=== PATIENT | female | born 1955 | race Caucasian/White ===

== ENCOUNTER 2018-01-03 05:54 | Day surgery (SDC) | payer OTHER ==
[2017-12-30 11:52] VITALS: BMI 31.6
[2018-01-03] MEDS ORDERED: PROPOFOL 20 ML ONE ×2 (07:01→07:49)
[2018-01-03] MEDS ORDERED: MIDAZOLAM HCL 2 MG/2 ML SINGLE DOSE VIAL ONE (07:01)
[2018-01-03] MEDS ORDERED: DEXAMETHASONE SOD PHOSPHATE 4 MG/1 ML VIAL ONE (07:02)
[2018-01-03] MEDS ORDERED: KETOROLAC TROMETHAMINE 30 MG/1 ML VIAL ONE (07:02)
[2018-01-03] MEDS ORDERED: LIDOCAINE HCL/PF 2% SDV 5ML VIAL ONE (07:02)
[2018-01-03] MEDS ORDERED: SUCCINYLCHOLINE CHLORIDE 200 MG/10 ML VIAL ONE (07:02)
[2018-01-03] MEDS ORDERED: ONDANSETRON 4 MG/2 ML VIAL ONE (07:02)
[2018-01-03] MEDS ORDERED: BUPIVACAINE HCL/PF 2.5 MG/ML - 30 ML VIAL IJ ONE (07:03)
[2018-01-03] MEDS ORDERED: EPINEPHrine 1:1,000 1 MG/1 ML - 30ML VIAL (INJECTION) ONE (07:13)
[2018-01-03] MEDS ORDERED: ONDANSETRON 4 MG/2 ML VIAL IVPUSH PRN (07:23)
[2018-01-03] MEDS ORDERED: oxyCODONE HCL 5 MG TABLET PO PRN ×2 (07:23)
[2018-01-03] MEDS ORDERED: LACTATED RINGERS SOLUTION 1,000 ML IV SCH (07:30)
[2018-01-03] MEDS ORDERED: BUPIVACAINE HCL/PF 0.25% (2.5MG/ML) 10 ML VIAL IJ ONE (08:04)
[2018-01-03 09:42] VITALS: TEMP 97.5
[2018-01-03 10:14] VITALS: BP 120/50; PULSE 66
--- NOTE | 2018-01-05 21:14 | OP ---
DATE OF OPERATION: 01/03/2018 LOCATION: [facility]. SURGEON: Shiv Veliz MD REGIONAL CRA: LISA Chen PREOPERATIVE DIAGNOSES: 1. Right knee medial and lateral meniscal tear. 2. Right knee cartilage injury. 3. Right knee synovitis. POSTOPERATIVE DIAGNOSES: 1. Right knee medial and lateral meniscal tear. 2. Right knee cartilage injury. 3. Right knee synovitis. PROCEDURE: 1. Right knee arthroscopy with partial meniscectomy, lateral meniscus. 2. Right knee arthroscopy with chondroplasty and abrasion-plasty. 3. Right knee arthroscopy with synovectomy, including removal of medial plica. FINDINGS: 1. Medial meniscus body and posterior horn tear. 2. Lateral meniscus posterior horn tear. 3. Synovitis, patellofemoral, medial and lateral notch area. 4. Anterior grade 2 cartilage injury, medial femoral condyle. 5. ACL and PCL intact. 6. Diffuse grade 1 to 2 cartilage injury, lateral joint line. 7. Central grade 2 to 4 cartilage injury, patellofemoral trochlea and patellofemoral joint. PROCEDURE: Informed consent was obtained. The patient came to the operating room, where the lower extremity was prepped and draped in a sterile fashion. A tourniquet was placed on the upper thigh, but not inflated. Using standard arthroscopic technique, a lateral incision and portal was made to allow for introduction of the camera into the suprapatellar bursa. This was then taken to the medial joint line, where under direct visualization, a medial incision and portal was made. Excessive synovium noted in the medial, lateral and patellofemoral and notch area was removed by an upbiter, shaver and Bovie cautery. This was found to bring in inflammatory tissue into the joint surface, a source of pain and dysfunction. Probing of the medial and lateral meniscus found tears, as described in the findings. These were removed with the upbiter and shaver and taken back to a stable rim. Grade 2 to 3 degenerative changes were treated with a chondroplasty, removing all flaking surfaces with low-setting Bovie along the periphery to prevent further flaking. Grade 4 changes, as noted, were treated with an abrasoplasty, creating a bleeding surface at the bone/cartilage interface. Aggressive debridement with shaver/jace created bleeding surface. Micro fracture also done when indicated in findings All areas of the knee were once again reexamined. The knee was then drained and a single suture was placed in all portals. A sterile dressing was placed and the patient was transferred to the recovery room without complication. SHIV VELIZ M.D. [id number]
--- NOTE | 2018-01-07 15:01 | PATH ---
Surgical Pathology Report Patient Name: SHANE KILLIAN [facility]. Rec. #: [id number] /Age/Gender: 1955 (Age: 62) / F Account: [id number] Location: [facility] Taken: 01/03/2018 Received: 01/03/2018 Reported: 01/07/2018 Physicians: Shiv Stephenson M.D. Specimen(s) Received RIGHT KNEE SHAVINGS Clinical History Internal derangement right knee Final Diagnosis KNEE, RIGHT, ARTHROSCOPIC SHAVINGS: FIBROSYNOVIAL AND FIBROCARTILAGINOUS TISSUE. Electronically Signed Angle aGllardo M.D. Gross Description Received in formalin, labeled "right knee shavings," is a 4.2 x 3.5 x 0.3 cm. aggregate of emmanuel-yellow soft tissue fragments. A field representative portion is submitted in one cassette. /01/06/201801/06/2018
== END 2018-01-03 10:17 | disposition home or self-care (01) ==
LOC: FASU 05:54
PROVIDERS: ATTEND Orthopaedic Surgery
PROC: 0SBC4ZZ Excision of Right Knee Joint, Percutaneous Endoscopic Approach (ICD-10-PCS; 2018-01-03)
PROC: 0SBC4ZZ Excision of Right Knee Joint, Percutaneous Endoscopic Approach (ICD-10-PCS; 2018-01-03)
PROC: 0SBC4ZZ Excision of Right Knee Joint, Percutaneous Endoscopic Approach (ICD-10-PCS; principal; 2018-01-03 07:30)
DX: S83.241A Other tear of medial meniscus, current injury, right knee, initial encounter (principal); S83.281A Other tear of lateral meniscus, current injury, right knee, initial encounter; S83.8X1A Sprain of other specified parts of right knee, initial encounter; M65.861 Other synovitis and tenosynovitis, right lower leg; X58.XXXA Exposure to other specified factors, initial encounter; Y93.89 Activity, other specified; Y92.89 Other specified places as the place of occurrence of the external cause
CPT/HCPCS: 88304-TC; 94760

== ENCOUNTER 2019-05-13 20:24 | Inpatient (IN) | payer OTHER ==
--- NOTE | 2019-05-14 00:50 | PDOC ---
Documentation entered by Harika Dominique SCRIBE, acting as scribe for Mary Kate Hobson MD. Mary Kate Hobson MD: This documentation has been prepared by the Trip lam Xhesika, SCRIBE, under my direction and personally reviewed by me in its entirety. I confirm that the documentation accurately reflects all work, treatment, procedures, and medical decision making performed by me. History of Present Illness - General Chief Complaint: Injury Stated Complaint: S/P FALL FALL, L HIP PAIN History Source: Patient Exam Limitations: No Limitations - History of Present Illness Initial Comments: 05/13/19 20:55 The patient is a 63 year old female, with a significant PMH of hypothyroidism ( on medication) and Breast ca (2012 Right Breast lumpectomy, on medication) who presents to the emergency department with L hip pain s/p fall. The patient states she was cleaning her kitchen, spilled some cleaning fluid, went to the bathroom and forgot the cleaning fluid was on the ground, when she returned to the kitchen she slipped and fell forward. The patient states she was able to crawl to her bed, however, she feels like her groin is sore and feels slightly short of breath. The patient states her pain is worsened with movement and walking. The patient denies chest pain, headache and dizziness. Denies fever, chills, nausea, vomiting, diarrhea and constipation. Denies dysuria, frequency, urgency and hematuria. Allergies: NKA Past surgical history: Abdominal Myomectomy, Left knee arthroscopy Social history: No tobacco use. Occasional alcohol use. PCP: Cira Rangel Past History - Past Medical History Allergies/Adverse Reactions: Allergies Allergy/AdvReac Type Severity Reaction Status Date / Time No Known Allergies Allergy Verified 01/03/18 06:54 Home Medications: Ambulatory Orders Anastrozole [Arimidex -] 1 mg PO DAILY 03/08/16 Cholecalciferol (Vitamin D3) [Vitamin D3] 1,000 unit PO DAILY 03/08/16 Levothyroxine [Synthroid -] 25 mcg PO DAILY 03/08/16 Anemia: No Asthma: No Cancer: Yes (2012 Right Breast) Cardiac Disorders: No CVA: No COPD: No CHF: No Dementia: No Diabetes: No GI Disorders: No Disorders: No HTN: No Hypercholesterolemia: No Liver Disease: No Seizures: No Thyroid Disease: Yes - Surgical History Abdominal Surgery: Yes (Abdominal Myomectomy) Appendectomy: No Cardiac Surgery: No Cholecystectomy: No Lung Surgery: No Neurologic Surgery: No Orthopedic Surgery: Yes (LEFT KNEE ARTHROSCOPY) - Suicide/Smoking/Psychosocial Hx Smoking History: Never smoked Hx Alcohol Use: Yes Drug/Substance Use Hx: No Substance Use Type: Alcohol Hx Substance Use Treatment: No Review of Systems - Review of Systems Able to Perform ROS?: Yes Comments:: 05/13/19 20:56 GENERAL/CONSTITUTIONAL: No fever or chills. No weakness. HEAD, EYES, EARS, NOSE AND THROAT: No change in vision. No ear pain or discharge. No sore throat. CARDIOVASCULAR: No chest pain. (+) shortness of breath. RESPIRATORY: No cough, wheezing, or hemoptysis. GASTROINTESTINAL: No nausea, vomiting, diarrhea or constipation. GENITOURINARY: No dysuria, frequency, or change in urination. MUSCULOSKELETAL:(+) L hip pain. No joint or muscle swelling. No neck or back pain. SKIN: No rash NEUROLOGIC: No headache, vertigo, loss of consciousness, or change in strength/ sensation. ENDOCRINE: No increased thirst. No abnormal weight change. HEMATOLOGIC/LYMPHATIC: No anemia, easy bleeding, or history of blood clots. ALLERGIC/IMMUNOLOGIC: No hives or skin allergy. *Physical Exam - Physical Exam Comments: 05/13/19 20:56 GENERAL: Awake, alert, and fully oriented, in no acute distress HEAD: No signs of trauma EYES: PERRLA, EOMI, sclera anicteric, conjunctiva clear ENT: Auricles normal inspection, hearing grossly normal, nares patent, oropharynx clear without exudates. Moist mucosa NECK: Normal ROM, supple, no lymphadenopathy, JVD, or masses CHEST WALL: no chest wall tenderness to palpation. LUNGS: Breath sounds equal, clear to auscultation bilaterally. No wheezes, and no crackles HEART: Regular rate and rhythm, normal S1 and S2, no murmurs, rubs or gallops ABDOMEN: Soft, nontender, normoactive bowel sounds. No guarding, no rebound. No masses EXTREMITIES: (+) moderate tenderness to palpation of proximal anterior L thigh with minimal pain with flexion and extension of the hip joint. Normal range of motion, no edema. No clubbing or cyanosis. No cords, erythema, or tenderness NEUROLOGICAL: Cranial nerves II through XII grossly intact. Normal speech, normal gait SKIN: Warm, Dry, normal turgor, no rashes or lesions noted. Twelve-lead electrocardiogram is performed: Normal sinus rhythm at 92 bpm; axis , intervals and waveforms are all normal. ED Treatment Course - LABORATORY CBC & Chemistry Diagram: 05/14/19 01:00 05/14/19 01:00 Progress Note - Progress Note Progress Note: Left hip/pelvis x-ray performed. Preliminary interpretation by Imaging summer sessions director : Subcapital versus transcervical left femoral neck fracture with suggestion for CT correlation. CT of left hip performed and preliminary interpretation by Imaging summer sessions director: Acute minimally displaced subcapital fracture of the left femoral neck no dislocation is present there is somewhat fragmented appearance of the anterior posterior acetabulum, thought to be due to osteophytosis. Medical Decision Making - Medical Decision Making 05/14/19 00:39 Results of radiologic studies discussed with the patient. Patient's general medical doctor is Dr. Crockett. Her orthopedist is Dr. Stephenson. Dr. Crockett contacted by phone: She is currently on vacation. Coverage for admissions will be Dr. Lyn Vernon. Overnight, Dr. Vernon's admissions are handled by [facility] hospitalist service Case discussed with DAIJA Wilson of [facility] hospitalist service and patient was admitted, Dr Gandara's service 05/14/19 06:43 Orthopedic surgery consultation called into 's service: Case discussed with Dr. Alexander . Message will be passed along to Dr. Jimenez and Dr. Alexander will continue to follow case as he is here today performing surgery. The patient will continue to be kept NPO, which she has been since arrival here in the ER. 05/14/19 06:55 Patient was comfortable overnight in ER; received one dose of acetaminophen IV. Laboratory evaluation essentially normal except for evidence of mild prerenal azotemia(BUN22/Cre1.0) *DC/Admit/Observation/Transfer Diagnosis at time of Disposition: Fracture of left hip Qualifiers: Encounter type: initial encounter Fracture type: closed Qualified Code(s): S72.002A - Fracture of unspecified part of neck of left femur, initial encounter for closed fracture - Discharge Dispostion Condition at time of disposition: Stable Decision to Admit order: Yes - Referrals - Patient Instructions - Post Discharge Activity
[2019-05-14] MEDS ORDERED: ACETAMINOPHEN 1000 MG/100 ML VIAL (NON FORMULARY) IVPB ONE ×3 (01:03→16:34)
[2019-05-14 01:41] LABS: BASO % 0.3 % (0-2.0); EOS % 0.8 % (0-4.5); HEMATOCRIT 40.6 % (32.4-45.2); HEMOGLOBIN 13.3 GM/dL (10.7-15.3); MCH 30.4 pg (25.7-33.7); MCHC 32.8 g/dl (32.0-36.0); MEAN CELL VOLUME 92.6 fl (80-96); MEAN PLT VOLUME 8.5 fl (7.5-11.1); MONO % 6.4 % (3.8-10.2); NEUT % 80.5 % (42.8-82.8); PLATELET COUNT 250 K/MM3 (134-434); RBC 4.39 M/mm3 (3.60-5.2); RDW 13.6 % (11.6-15.6); WHITE BLOOD COUNT 9.4 K/mm3 (4.0-10.0)
[2019-05-14] MEDS: DEXTROSE 5%-0.45% SALINE 1,000 ML IV SCH (01:55)
[2019-05-14 01:58] LABS: INR 0.95 (0.83-1.09); PROTHROMBIN TIME (PATIENT) 11.2 SEC (9.7-13.0)
[2019-05-14 02:02] LABS: BILIRUBIN,TOTAL 0.7 mg/dL (0.2-1); CALCIUM 9.4 mg/dL (8.5-10.1); POTASSIUM 4.1 mmol/L (3.5-5.1); TOT PROT 7.2 g/dl (6.4-8.2)
[2019-05-14] MEDS ORDERED: ACETAMINOPHEN INJECTION 100 ML IVPB ONE (02:38)
[2019-05-14] MEDS: LEVOTHYROXINE NA 25 MCG TABLET (FP) PO SCH (08:30)
--- NOTE | 2019-05-14 09:31 | HP ---
Admitting History and Physical - Primary Care Physician PCP: Cira Crockett - Admission History of Present Illness: Patient seen and examined in the emergency room today Chart is reviewed ER records reviewed And I concur as per emergency room records The patient is a 63 year old female, with a significant PMH of hypothyroidism ( on medication) and Breast ca (2012 Right Breast lumpectomy, on medication) who presents to the emergency department with L hip pain s/p fall. The patient states she was cleaning her kitchen, spilled some cleaning fluid, went to the bathroom and forgot the cleaning fluid was on the ground, when she returned to the kitchen she slipped and fell forward. The patient states she was able to crawl to her bed, however, she feels like her groin is sore and feels slightly short of breath. The patient states her pain is worsened with movement and walking. The patient denies chest pain, headache and dizziness. Denies fever, chills, nausea, vomiting, diarrhea and constipation. Denies dysuria, frequency, urgency and hematuria. Allergies: NKA Past surgical history: Abdominal Myomectomy, Left knee arthroscopy Social history: No tobacco use. Occasional alcohol use. PCP: Cira Rangel Workup in the emergency room--showed left femoral neck impacted fracture Patient kept npo Orthopedics consult requested pt at time of my exam comfortable pain under control History Source: Patient Limitations to Obtaining History: No Limitations - Past Medical History Endocrine: Yes: Hypothyroidism Additional Past Medical History: breast cancer - Smoking History Smoking history: Never smoked Have you smoked in the past 12 months: No Aproximately how many cigarettes per day: 0 - Alcohol/Substance Use Hx Alcohol Use: Yes Home Medications - Allergies Allergies/Adverse Reactions: Allergies Allergy/AdvReac Type Severity Reaction Status Date / Time No Known Allergies Allergy Verified 01/03/18 06:54 - Home Medications Home Medications: Ambulatory Orders Anastrozole [Arimidex -] 1 mg PO DAILY 03/08/16 Cholecalciferol (Vitamin D3) [Vitamin D3] 1,000 unit PO DAILY 03/08/16 Levothyroxine [Synthroid -] 25 mcg PO DAILY 03/08/16 Review of Systems - Review of Systems Constitutional: reports: No Symptoms Eyes: reports: No Symptoms HENT: reports: No Symptoms Neck: reports: No Symptoms Cardiovascular: reports: No Symptoms Respiratory: reports: No Symptoms Genitourinary: reports: No Symptoms Musculoskeletal: reports: Joint Pain Neurological: reports: No Symptoms Endocrine: reports: No Symptoms Psychiatric: reports: No Symptoms Physical Examination Vital Signs: Vital Signs Temperature 98.3 F 05/14/19 06:22 Pulse Rate 89 05/14/19 06:22 Respiratory Rate 14 05/14/19 06:22 Blood Pressure 111/50 L 05/14/19 06:22 O2 Sat by Pulse Oximetry (%) 99 05/14/19 06:22 Constitutional: Yes: No Distress, Calm Eyes: Yes: Conjunctiva Clear HENT: Yes: WNL Neck: Yes: Supple, Other (no bruie) Cardiovascular: Yes: Regular Rate and Rhythm Respiratory: Yes: CTA Bilaterally Gastrointestinal: Yes: Soft Edema: No Peripheral Pulses WNL: Yes Labs: CBC, BMP 05/14/19 01:00 05/14/19 01:00 Imaging - Results Chest X-ray: Report Reviewed Cat Scan: Report Reviewed Problem List - Problems (1) Fracture of left hip Assessment/Plan: pain control Orthopedics to follow Medically stable for proposed procedure Emergency room workup was reviewed keep nothing by mouth for now Mild hydration Code(s): S72.002A - FRACTURE OF UNSP PART OF NECK OF LEFT FEMUR, INIT Qualifiers: Encounter type: initial encounter Fracture type: closed Qualified Code(s) : S72.002A - Fracture of unspecified part of neck of left femur, initial encounter for closed fracture (2) Hypothyroidism Assessment/Plan: on Synthroid Monitor TSH level Code(s): E03.9 - HYPOTHYROIDISM, UNSPECIFIED (3) Breast cancer Assessment/Plan: no active issues On Arimidex Code(s): C50.919 - MALIGNANT NEOPLASM OF UNSP SITE OF UNSPECIFIED FEMALE BREAST
--- NOTE | 2019-05-14 09:40 | CONSULT ---
Consult Consult Specialty:: Orthopedics - Alcohol/Substance Use Hx Alcohol Use: Yes - Smoking History Smoking history: Never smoked Have you smoked in the past 12 months: No Aproximately how many cigarettes per day: 0 Home Medications - Allergies Allergies/Adverse Reactions: Allergies Allergy/AdvReac Type Severity Reaction Status Date / Time No Known Allergies Allergy Verified 01/03/18 06:54 - Home Medications Home Medications: Ambulatory Orders Anastrozole [Arimidex -] 1 mg PO DAILY 03/08/16 Cholecalciferol (Vitamin D3) [Vitamin D3] 1,000 unit PO DAILY 03/08/16 Levothyroxine [Synthroid -] 25 mcg PO DAILY 03/08/16 Physical Exam Vital Signs: Vital Signs Temperature 98.3 F 05/14/19 06:22 Pulse Rate 89 05/14/19 06:22 Respiratory Rate 14 05/14/19 06:22 Blood Pressure 111/50 L 05/14/19 06:22 O2 Sat by Pulse Oximetry (%) 99 05/14/19 06:22 Labs: CBC, BMP 05/14/19 01:00 05/14/19 01:00 Assessment/Plan Full consult to follow Impacted left femoral neck fracture Keep NPO for percutaneous pinning today if medically cleared.
[2019-05-14] MEDS: ANASTROZOLE 1 MG TABLET PO SCH (10:58)
[2019-05-14] MEDS ORDERED: MIDAZOLAM HCL 2 MG/2 ML SINGLE DOSE VIAL ONE (13:23)
[2019-05-14] MEDS ORDERED: PROPOFOL 20 ML ONE (14:21)
[2019-05-14] MEDS ORDERED: SUCCINYLCHOLINE CHLORIDE 200 MG/10 ML VIAL ONE (14:21)
[2019-05-14] MEDS ORDERED: ONDANSETRON 4 MG/2 ML VIAL IVPUSH PRN ×2 (16:20→16:36)
[2019-05-14] MEDS ORDERED: PROMETHAZINE HCL 25 MG/1 ML VIAL IVPUSH PRN (16:20)
[2019-05-14] MEDS ORDERED: LACTATED RINGERS SOLUTION 1,000 ML IV SCH ×2 (16:30→16:45)
--- NOTE | 2019-05-14 16:30 | OP ---
Operative Note - Note: Operative Date: 05/14/19 Pre-Operative Diagnosis: left femoral neck fracture Operation: Cannulated screw fixation of left femoral neck fracture Post-Operative Diagnosis: Same as Pre-op Surgeon: Kirk Alexander Perfume And Toilet Water Maker: Isabell Nuno Anesthesia: Spinal Estimated Blood Loss (mls): 50
[2019-05-14] MEDS ORDERED: oxyCODONE HCL 5 MG TABLET PO PRN ×3 (16:35→16:38)
[2019-05-14] MEDS ORDERED: MAG HYDROX/AL HYDROX/SIMETH 30 ML UNIT-DOSE CUP PO PRN (16:36)
[2019-05-14] MEDS ORDERED: MAGNESIUM HYDROX 2400MG/30ML ORAL SUSPENSION 30 ML CUP PO PRN (16:36)
[2019-05-14] MEDS: KETOROLAC TROMETHAMINE 30 MG/1 ML VIAL IVPUSH SCH ×2 (16:45→23:02)
[2019-05-14] MEDS ORDERED: ONDANSETRON 4 MG/2 ML VIAL ONE (17:08)
--- NOTE | 2019-05-14 17:12 | EKG ---
Test Reason : Blood Pressure : / mmHG Vent. Rate : 092 BPM Atrial Rate : 092 BPM P-R Int : 144 ms QRS Dur : 080 ms QT Int : 362 ms P-R-T Axes : 046 064 046 degrees QTc Int : 447 ms NORMAL SINUS RHYTHM NORMAL ECG WHEN COMPARED WITH ECG OF 12-APR-2004 08:22, T WAVE AMPLITUDE HAS DECREASED IN ANTERIOR LEADS Confirmed by JERAD ANGULO MD ([id number]) on 05/14/2019 5:12:10 PM Referred By: MD POSADA Confirmed By:JERAD ANGULO MD
--- NOTE | 2019-05-14 17:13 | OP ---
DATE OF OPERATION: 05/14/2019 PREOPERATIVE DIAGNOSIS: Left femoral neck fracture. POSTOPERATIVE DIAGNOSIS: Left femoral neck fracture. PROCEDURE: Left hip cannulated screw fixation of femoral neck fracture. ATTENDING: Kirk Alexander MD CLINIC LPN: LISA Trevino ANESTHESIA: General. ESTIMATED BLOOD LOSS: 50 mL. COMPLICATIONS: None. DISPOSITION: The patient was awakened and taken to the PACU in stable condition. IMPLANTS USED: Molly 6.5 mm x 80 mm Asnis cannulated screws x3. INDICATIONS: This is a 63-year-old female who had a mechanical fall at home and was admitted to the emergency room with femoral neck fracture. X-rays and a CT scan showed that it was a valgus-impacted, Garden I femoral neck fracture without displacement. The patient was seen and examined by Dr. Alexander as an inpatient consult and indicated for cannulated screw fixation of the fracture. The risks, benefits, and alternatives to the procedure were explained to the patient in great detail, and she elected to proceed with the surgery. On the day of surgery, the patient was taken to the operating room and placed under general anesthesia. Intravenous antibiotics were given for infection prophylaxis. The patient was positioned supine on the fracture table, and the left lower extremity was secured to the traction boot. The contralateral leg was placed in the semi-lithotomy position, and all extremities were padded. A fluoroscope was then used to visualize the fracture in both the AP and lateral planes. The hip was then prepped with chlorhexidine, and a sterile drape was applied in the usual fashion. A 4-cm incision was then made just distal to the greater trochanter. This was carried down sharply through skin to the fascia. The femur was identified. The guidewire for the [place] cannulated screw system was placed in the appropriate position at the level of the lesser trochanter, and a guidewire was placed into the inferior femoral neck and found to be centered on the lateral view. The triangle guide was then used to place 2 more guidewires superior to the inferior guidewire in the appropriate inverted Delta triangular formation. The guidewire lengths were then measured to calculate our screw lengths. A single screw was then placed inferiorly, followed by 2 screws superiorly. Fluoroscopy was used throughout the process to ensure that the guidewires and screws were appropriately in the head and neck in all views. Once this was completed, the guidewires were removed. The wound was thoroughly irrigated with normal saline and closed with number 1 Vicryl for the fascia, 2-0 Vicryl for the subcutaneous tissues, and 3-0 Monocryl for skin. Dermabond adhesive skin closure glue was then applied, followed by Steri-Strips. A sterile Aquacel dressing was then applied. The patient was then awakened and taken to the PACU in stable condition. Analy WAGONER/[id number]
[2019-05-14] MEDS: traMADol HCL 50 MG TABLET PO SCH ×2 (17:40→23:02)
[2019-05-14 18:51] VITALS: BMI 41.4
[2019-05-14] MEDS: GABAPENTIN 300 MG CAPSULE (FP) PO SCH (23:01)
[2019-05-14] MEDS: oxyCODONE HCL 10 MG SUSTAINED ACTING TABLET PO SCH (23:01)
[2019-05-14] MEDS: SENNOSIDES/DOCUSATE COMBO (SENNA PLUS) TABLET (UD) PO SCH (23:01)
[2019-05-14] MEDS: CEFAZOLIN 2 GM/D5W 2 GM/50 ML ML IVPB SCH (23:14)
[2019-05-15] MEDS ORDERED: DEXAMETHASONE SOD PHOSPHATE 10 MG/1 ML VIAL IVPB ONE
[2019-05-15] MEDS: DEXTROSE 5%-0.45% SALINE 1,000 ML IV SCH (01:00)
[2019-05-15] MEDS: KETOROLAC TROMETHAMINE 30 MG/1 ML VIAL IVPUSH SCH ×2 (06:23→11:56)
[2019-05-15] MEDS: LEVOTHYROXINE NA 25 MCG TABLET (FP) PO SCH (06:24)
[2019-05-15] MEDS: CEFAZOLIN 2 GM/D5W 2 GM/50 ML ML IVPB SCH (06:25)
[2019-05-15] MEDS: traMADol HCL 50 MG TABLET PO SCH ×4 (06:27→21:59)
[2019-05-15 08:04] LABS: CREATININE 0.7 mg/dl (0.55-1.3); POTASSIUM 4.3 mmol/L (3.5-5.1)
[2019-05-15 08:08] LABS: HEMATOCRIT 35.3 % (32.4-45.2); HEMOGLOBIN 12.1 GM/dl (10.7-15.3); MCH 31.6 pg (25.7-33.7); MCHC 34.2 g/dl (32.0-36.0); MEAN CELL VOLUME 92.4 fl (80-96); MEAN PLT VOLUME 8.8 fl (7.5-11.1); PLATELET COUNT 200 K/MM3 (134-434); RBC 3.82 M/mm3 (3.60-5.2); RDW 12.8 % (11.6-15.6); WHITE BLOOD COUNT 6.6 K/mm3 (4.0-10.8)
--- NOTE | 2019-05-15 10:08 | PN ---
Progress Note (short form) - Note Progress Note: pt seen / examined pod # 1 comfortable. denies pain Vital Signs Temp 98.5 F 05/15/19 06:00 Pulse 69 05/15/19 06:00 Resp 18 05/15/19 06:00 BP 115/54 L 05/15/19 06:00 Pulse Ox 95 05/15/19 06:00 Intake & Output 05/14/19 05/14/19 05/15/19 11:59 23:59 11:59 Intake Total 1000 1050 1590 Output Total 350 Balance 7595 303 0268 Weight 249 lb 1.957 oz Intake: IV 4669 817 5840 Lactated Ringers Solution 1300 1,000 ml @ 125 mls/hr IV ASDIR [facility] Rx#: [id number] IVPB 50 Oral 850 240 Output: Urine 350 Void 350 Other: Voiding Method Bedpan Bedpan # Unmeasured Voids Void 1 1 Bowel Movement No No Height 5 ft 5 in Body Mass Index (BMI) 41.4 Weight Measurement Method [facility] Active Medications Al Hydroxide/Mg Hydroxide (Mylanta Oral Suspension -) 30 ml PO Q4H PRN PRN Reason: DYSPEPSIA Anastrozole (Arimidex -) 1 mg PO DAILY [facility] Last Admin: 05/14/19 10:58 Dose: Not Given Enoxaparin Sodium (Lovenox -) 40 mg SQ DAILY [facility] Gabapentin (Neurontin -) 300 mg PO BID [facility] Stop: 05/17/19 21:59 Last Admin: 05/14/19 23:01 Dose: 300 mg Dextrose/Sodium Chloride (D5-1/2ns -) 1,000 mls @ 60 mls/hr IV ASDIR [facility] Last Admin: 05/15/19 01:00 Dose: 60 mls/hr Ketorolac Tromethamine (Toradol Injection -) 30 mg IVPUSH Q6H [facility] Stop: 05/15/19 10:46 Last Admin: 05/15/19 06:23 Dose: 30 mg Levothyroxine Sodium (Synthroid -) 25 mcg PO DAILY@0700 [facility] Last Admin: 05/15/19 06:24 Dose: 25 mcg Magnesium Hydroxide (Milk Of Magnesia -) 30 ml PO PRN PRN PRN Reason: CONSTIPATION Multivitamins/Minerals/Vitamin C (Tab-A-Vit -) 1 tab PO DAILY [facility] Ondansetron HCl (Zofran Injection) 4 mg IVPUSH Q6H PRN PRN Reason: NAUSEA Oxycodone HCl (Oxycontin -) 10 mg PO BID [facility] Last Admin: 05/14/19 23:01 Dose: 10 mg Oxycodone HCl (Roxicodone -) 10 mg PO Q3H PRN PRN Reason: PAIN LEVEL 6-10 Stop: 05/17/19 16:36 Oxycodone HCl (Roxicodone -) 5 mg PO Q3H PRN PRN Reason: PAIN LEVEL 1-5 Stop: 05/17/19 16:35 Pantoprazole Sodium (Protonix -) 40 mg PO DAILY [facility] Senna/Docusate Sodium (Pericolace -) 2 tablet PO BID [facility] Last Admin: 05/14/19 23:01 Dose: 2 tablet Tramadol HCl (Ultram -) 50 mg PO Q6H [facility] Last Admin: 05/15/19 06:27 Dose: 50 mg CBC, BMP 05/15/19 07:21 05/15/19 07:21 TSH - Pending Physical Examination Constitutional: Yes: No Distress, Comfortable Eyes: Yes: Conjunctiva Clear HENT: Yes: WNL Neck: Yes: Supple, Other (no bruie) Cardiovascular: Yes: Regular Rate and Rhythm Respiratory: Yes: CTA Bilaterally Gastrointestinal: Yes: Soft Edema: No Peripheral Pulses WNL: Yes Extremities-- dressing + Imaging - Results Chest X-ray: Report Reviewed Cat Scan: Report Reviewed A/p pod #1 stable pain control PT d/c fluids Will follow Problem List - Problems (1) Fracture of left hip Code(s): S72.002A - FRACTURE OF UNSP PART OF NECK OF LEFT FEMUR, INIT Qualifiers: Encounter type: initial encounter Fracture type: closed Qualified Code(s) : S72.002A - Fracture of unspecified part of neck of left femur, initial encounter for closed fracture (2) Hypothyroidism Code(s): E03.9 - HYPOTHYROIDISM, UNSPECIFIED (3) Breast cancer Code(s): C50.919 - MALIGNANT NEOPLASM OF UNSP SITE OF UNSPECIFIED FEMALE BREAST
--- NOTE | 2019-05-15 11:22 | PN ---
Progress Note, Physician Chief Complaint: s/p left hip pinning under general anesthesia History of Present Illness: post op day one - Current Medication List Current Medications: Active Medications Al Hydroxide/Mg Hydroxide (Mylanta Oral Suspension -) 30 ml PO Q4H PRN PRN Reason: DYSPEPSIA Anastrozole (Arimidex -) 1 mg PO DAILY [facility] Last Admin: 05/14/19 10:58 Dose: Not Given Enoxaparin Sodium (Lovenox -) 40 mg SQ DAILY [facility] Gabapentin (Neurontin -) 300 mg PO BID [facility] Stop: 05/17/19 21:59 Last Admin: 05/14/19 23:01 Dose: 300 mg Levothyroxine Sodium (Synthroid -) 25 mcg PO DAILY@0700 [facility] Last Admin: 05/15/19 06:24 Dose: 25 mcg Magnesium Hydroxide (Milk Of Magnesia -) 30 ml PO PRN PRN PRN Reason: CONSTIPATION Multivitamins/Minerals/Vitamin C (Tab-A-Vit -) 1 tab PO DAILY [facility] Ondansetron HCl (Zofran Injection) 4 mg IVPUSH Q6H PRN PRN Reason: NAUSEA Oxycodone HCl (Oxycontin -) 10 mg PO BID [facility] Last Admin: 05/14/19 23:01 Dose: 10 mg Oxycodone HCl (Roxicodone -) 10 mg PO Q3H PRN PRN Reason: PAIN LEVEL 6-10 Stop: 05/17/19 16:36 Oxycodone HCl (Roxicodone -) 5 mg PO Q3H PRN PRN Reason: PAIN LEVEL 1-5 Stop: 05/17/19 16:35 Pantoprazole Sodium (Protonix -) 40 mg PO DAILY [facility] Senna/Docusate Sodium (Pericolace -) 2 tablet PO BID [facility] Last Admin: 05/14/19 23:01 Dose: 2 tablet Tramadol HCl (Ultram -) 50 mg PO Q6H [facility] Last Admin: 05/15/19 06:27 Dose: 50 mg - Objective Vital Signs: Vital Signs Temperature 98.6 F 05/15/19 10:00 Pulse Rate 72 05/15/19 10:00 Respiratory Rate 17 05/15/19 10:00 Blood Pressure 112/56 L 05/15/19 10:00 O2 Sat by Pulse Oximetry (%) 99 05/15/19 10:00 Constitutional: Yes: Well Nourished Cardiovascular: Yes: WNL Respiratory: Yes: WNL Gastrointestinal: Yes: WNL Labs: CBC, BMP 05/15/19 07:21 05/15/19 07:21 INR, PTT INR 0.95 (0.83-1.09) 05/14/19 01:00 Assessment/Plan No adverse effect from anesthesia, post op pain controlled, dept of anesthesiology will sign off care at this time
[2019-05-15] MEDS: ENOXAPARIN NA (PORCINE) 40 MG/0.4 ML DISP.SYRIN SQ SCH (11:45)
[2019-05-15] MEDS: SENNOSIDES/DOCUSATE COMBO (SENNA PLUS) TABLET (UD) PO SCH ×2 (11:48→21:57)
[2019-05-15] MEDS: PANTOPRAZOLE 40 MG TABLET (FP) PO SCH (11:48)
[2019-05-15] MEDS: MULTIVITAMINS (DAILY MVI) TABLET (FP) PO SCH (11:50)
[2019-05-15] MEDS: oxyCODONE HCL 10 MG SUSTAINED ACTING TABLET PO SCH ×2 (11:50→21:57)
[2019-05-15] MEDS: GABAPENTIN 300 MG CAPSULE (FP) PO SCH ×2 (11:50→21:57)
[2019-05-15] MEDS: ANASTROZOLE 1 MG TABLET PO SCH (11:51)
[2019-05-16] MEDS: traMADol HCL 50 MG TABLET PO SCH ×5 (06:26→21:59)
[2019-05-16] MEDS: LEVOTHYROXINE NA 25 MCG TABLET (FP) PO SCH (06:26)
[2019-05-16 08:38] LABS: HEMATOCRIT 37.3 % (32.4-45.2); HEMOGLOBIN 12.5 GM/dl (10.7-15.3); MCH 31.3 pg (25.7-33.7); MCHC 33.4 g/dl (32.0-36.0); MEAN CELL VOLUME 93.6 fl (80-96); MEAN PLT VOLUME 8.9 fl (7.5-11.1); PLATELET COUNT 197 K/MM3 (134-434); RBC 3.99 M/mm3 (3.60-5.2); RDW 12.6 % (11.6-15.6); WHITE BLOOD COUNT 8.5 K/mm3 (4.0-10.8)
[2019-05-16 08:42] LABS: CALCIUM 9.3 mg/dl (8.5-10); CREATININE 0.8 mg/dl (0.55-1.3); POTASSIUM 4.4 mmol/L (3.5-5.1)
--- NOTE | 2019-05-16 08:51 | PN ---
Progress Note (short form) - Note Progress Note: Pt seen and examined. Doing well. AVSS Selected Entries 05/16/19 05:00 Temperature 98.1 F Respiratory 18 Rate Blood Pressure 116/56 L O2 Sat by Pulse 96 Oximetry (%) Laboratory Tests 05/15/19 05/15/19 05/16/19 07:21 07:21 07:16 WBC 6.6 8.5 Hgb 12.1 12.5 Hct 35.3 37.3 Plt Count 200 197 Sodium 136 Potassium 4.3 Chloride 105 Carbon Dioxide 24 Anion Gap 7 L BUN 16.0 Creatinine 0.7 Est GFR (CKD-EPI)AfAm 105.38 Est GFR (CKD-EPI)NonAf 90.92 Random Glucose 144 H Calcium 9.0 Gen: NAD LLE: c/d/i, NVID A/P POD#2 s/p L femoral neck fracture cannulated screw fixation PT/OOB - WBAT LLE D/C planning to home vs SNF/rehab Lovenox for DVT ppx x 35 days F/U in office in 10-14 days
[2019-05-16] MEDS: oxyCODONE HCL 10 MG SUSTAINED ACTING TABLET PO SCH (09:17)
[2019-05-16] MEDS: ANASTROZOLE 1 MG TABLET PO SCH (09:17)
[2019-05-16] MEDS: ENOXAPARIN NA (PORCINE) 40 MG/0.4 ML DISP.SYRIN SQ SCH (09:17)
[2019-05-16] MEDS: GABAPENTIN 300 MG CAPSULE (FP) PO SCH ×2 (09:17→21:48)
[2019-05-16] MEDS: PANTOPRAZOLE 40 MG TABLET (FP) PO SCH (09:17)
[2019-05-16] MEDS: SENNOSIDES/DOCUSATE COMBO (SENNA PLUS) TABLET (UD) PO SCH ×2 (09:18→21:48)
[2019-05-16] MEDS: MULTIVITAMINS (DAILY MVI) TABLET (FP) PO SCH (09:18)
--- NOTE | 2019-05-16 13:32 | PN ---
Progress Note (short form) - Note Progress Note: pt seen/ examined pod #2 Ortho f/u noted but pt says Dr. Alexander suggested she should go to rehab Pt did walk with pt today but says felt dizzy afterwards otherwise stable and comfortable pain ok Vital Signs Temp 98.1 F 05/16/19 10:00 Pulse 73 05/16/19 10:00 Resp 18 05/16/19 10:00 BP 116/56 L 05/16/19 10:00 Pulse Ox 96 05/16/19 09:00 Intake & Output 05/15/19 05/16/19 05/16/19 23:59 11:59 23:59 Intake Total 750 380 Balance 750 380 Intake: Oral 750 380 Other: Voiding Method Bedpan Toilet # Unmeasured Voids Void 1 1 Active Medications Al Hydroxide/Mg Hydroxide (Mylanta Oral Suspension -) 30 ml PO Q4H PRN PRN Reason: DYSPEPSIA Anastrozole (Arimidex -) 1 mg PO DAILY [facility] Last Admin: 05/16/19 09:17 Dose: 1 mg Enoxaparin Sodium (Lovenox -) 40 mg SQ DAILY [facility] Last Admin: 05/16/19 09:17 Dose: 40 mg Gabapentin (Neurontin -) 300 mg PO BID [facility] Stop: 05/17/19 21:59 Last Admin: 05/16/19 09:17 Dose: 300 mg Levothyroxine Sodium (Synthroid -) 12.5 mcg PO DAILY@0700 [facility] Magnesium Hydroxide (Milk Of Magnesia -) 30 ml PO PRN PRN PRN Reason: CONSTIPATION Multivitamins/Minerals/Vitamin C (Tab-A-Vit -) 1 tab PO DAILY [facility] Last Admin: 05/16/19 09:18 Dose: 1 tab Ondansetron HCl (Zofran Injection) 4 mg IVPUSH Q6H PRN PRN Reason: NAUSEA Oxycodone HCl (Oxycontin -) 10 mg PO BID [facility] Last Admin: 05/16/19 09:17 Dose: 10 mg Oxycodone HCl (Roxicodone -) 10 mg PO Q3H PRN PRN Reason: PAIN LEVEL 6-10 Stop: 05/17/19 16:36 Oxycodone HCl (Roxicodone -) 5 mg PO Q3H PRN PRN Reason: PAIN LEVEL 1-5 Stop: 05/17/19 16:35 Pantoprazole Sodium (Protonix -) 40 mg PO DAILY [facility] Last Admin: 05/16/19 09:17 Dose: 40 mg Senna/Docusate Sodium (Pericolace -) 2 tablet PO BID [facility] Last Admin: 05/16/19 09:18 Dose: 2 tablet Tramadol HCl (Ultram -) 50 mg PO Q6H [facility] Last Admin: 05/16/19 10:15 Dose: Not Given CBC, BMP 05/16/19 07:16 05/16/19 07:16 Abnormal Lab Results 05/16/19 07:16 BUN 23.0 H CMP Sodium 139 mmol/L (136-145) 05/16/19 07:16 Potassium 4.4 mmol/L (3.5-5.1) 05/16/19 07:16 Chloride 103 mmol/L (98-107) 05/16/19 07:16 Carbon Dioxide 27 mmol/L (21-32) 05/16/19 07:16 Anion Gap 9 MMOL/L (8-16) 05/16/19 07:16 BUN 23.0 mg/dl (7-18) H 05/16/19 07:16 Creatinine 0.8 mg/dl (0.55-1.3) 05/16/19 07:16 Est GFR (CKD-EPI)AfAm 89.67 05/16/19 07:16 Est GFR (CKD-EPI)NonAf 77.37 05/16/19 07:16 Random Glucose 80 mg/dl (74-106) 05/16/19 07:16 Calcium 9.3 mg/dl (8.5-10) 05/16/19 07:16 Total Bilirubin 0.7 mg/dL (0.2-1) 05/14/19 01:00 AST 19 U/L (15-37) 05/14/19 01:00 ALT 31 U/L (13-61) 05/14/19 01:00 Alkaline Phosphatase 101 U/L (45-117) 05/14/19 01:00 Total Protein 7.2 g/dl (6.4-8.2) 05/14/19 01:00 Albumin 4.0 g/dl (3.4-5.0) 05/14/19 01:00 TSH 0.11 uIU/ml (0.358-3.74) L 05/15/19 08:52 Physical Examination Constitutional: Yes: No Distress, Comfortable Eyes: Yes: Conjunctiva Clear HENT: Yes: WNL Neck: Yes: Supple, Other (no bruie) Cardiovascular: Yes: Regular Rate and Rhythm Respiratory: Yes: CTA Bilaterally Gastrointestinal: Yes: Soft Edema: No Peripheral Pulses WNL: Yes Extremities-- dressing + Imaging - Results Chest X-ray: Report Reviewed Cat Scan: Report Reviewed A/p pod #2 stable pain control PT decrease dose of synthroid d/c planning Medically stable for d/c to rehab when bed available d/c standing dose of oxy now Discussed with RN Will follow Problem List - Problems (1) Fracture of left hip Code(s): S72.002A - FRACTURE OF UNSP PART OF NECK OF LEFT FEMUR, INIT Qualifiers: Encounter type: initial encounter Fracture type: closed Qualified Code(s) : S72.002A - Fracture of unspecified part of neck of left femur, initial encounter for closed fracture (2) Hypothyroidism Code(s): E03.9 - HYPOTHYROIDISM, UNSPECIFIED (3) Breast cancer Code(s): C50.919 - MALIGNANT NEOPLASM OF UNSP SITE OF UNSPECIFIED FEMALE BREAST
[2019-05-17] MEDS: traMADol HCL 50 MG TABLET PO SCH ×4 (05:00→21:56)
[2019-05-17 09:22] LABS: MCH 31.5 pg (25.7-33.7); MCHC 33.3 g/dl (32.0-36.0); MEAN CELL VOLUME 94.6 fl (80-96); PLATELET COUNT 189 K/MM3 (134-434); RBC 3.81 M/mm3 (3.60-5.2); RDW 12.7 % (11.6-15.6); WHITE BLOOD COUNT 5.4 K/mm3 (4.0-10.8)
[2019-05-17 09:33] LABS: CALCIUM 8.6 mg/dl (8.5-10); CREATININE 0.9 mg/dl (0.55-1.3); POTASSIUM 3.9 mmol/L (3.5-5.1)
[2019-05-17] MEDS: GABAPENTIN 300 MG CAPSULE (FP) PO SCH (10:36)
[2019-05-17] MEDS: MULTIVITAMINS (DAILY MVI) TABLET (FP) PO SCH (10:36)
[2019-05-17] MEDS: ANASTROZOLE 1 MG TABLET PO SCH (10:36)
[2019-05-17] MEDS: SENNOSIDES/DOCUSATE COMBO (SENNA PLUS) TABLET (UD) PO SCH ×2 (10:36→21:57)
[2019-05-17] MEDS: PANTOPRAZOLE 40 MG TABLET (FP) PO SCH (10:36)
[2019-05-17] MEDS: ENOXAPARIN NA (PORCINE) 40 MG/0.4 ML DISP.SYRIN SQ SCH (10:36)
--- NOTE | 2019-05-17 17:43 | PN ---
Progress Note, Physician Chief Complaint: s/p fall with left hip fracture and ORIF day 4 History of Present Illness: 63 yo female with PMH of breast cancer was admitted for fracture of the left femur. Patient had left femoral neck pinning, and i sisee today [pt operatively day 4. PAtient has minimal pain when walking, had a bowel movement since surgery and denies chest pain, shortness of breath, - Current Medication List Current Medications: Active Medications Al Hydroxide/Mg Hydroxide (Mylanta Oral Suspension -) 30 ml PO Q4H PRN PRN Reason: DYSPEPSIA Anastrozole (Arimidex -) 1 mg PO DAILY [facility] Last Admin: 05/17/19 10:36 Dose: 1 mg Enoxaparin Sodium (Lovenox -) 40 mg SQ DAILY [facility] Last Admin: 05/17/19 10:36 Dose: 40 mg Gabapentin (Neurontin -) 300 mg PO BID [facility] Stop: 05/17/19 21:59 Last Admin: 05/17/19 10:36 Dose: 300 mg Levothyroxine Sodium (Synthroid -) 12.5 mcg PO DAILY@0700 [facility] Magnesium Hydroxide (Milk Of Magnesia -) 30 ml PO PRN PRN PRN Reason: CONSTIPATION Multivitamins/Minerals/Vitamin C (Tab-A-Vit -) 1 tab PO DAILY [facility] Last Admin: 05/17/19 10:36 Dose: 1 tab Ondansetron HCl (Zofran Injection) 4 mg IVPUSH Q6H PRN PRN Reason: NAUSEA Pantoprazole Sodium (Protonix -) 40 mg PO DAILY [facility] Last Admin: 05/17/19 10:36 Dose: 40 mg Senna/Docusate Sodium (Pericolace -) 2 tablet PO BID [facility] Last Admin: 05/17/19 10:36 Dose: 2 tablet Tramadol HCl (Ultram -) 50 mg PO Q6H [facility] Last Admin: 05/17/19 17:06 Dose: Not Given - Objective Vital Signs: Vital Signs Temperature 97.4 F L 05/17/19 14:26 Pulse Rate 77 05/17/19 14:26 Respiratory Rate 18 05/17/19 14:26 Blood Pressure 124/51 L 05/17/19 14:26 O2 Sat by Pulse Oximetry (%) 95 05/17/19 14:26 Constitutional: Yes: No Distress, Calm Eyes: Yes: Conjunctiva Clear, EOM Intact HENT: Yes: Atraumatic, Normocephalic Neck: Yes: Supple, Trachea Midline Cardiovascular: Yes: Regular Rate and Rhythm, S1, S2 Respiratory: Yes: Regular, CTA Bilaterally Gastrointestinal: Yes: Normal Bowel Sounds, Soft, Abdomen, Obese. No: Hepatomegaly, Splenomegaly ...Rectal Exam: Yes: Deferred Extremities: No: Calf Tenderness Edema: No Peripheral Pulses WNL: Yes Integumentary: Yes: Bruising (left calf) Neurological: Yes: Alert, Oriented Psychiatric: Yes: Alert, Oriented Labs: CBC, BMP 05/17/19 05:55 05/17/19 05:55 INR, PTT INR 0.95 (0.83-1.09) 05/14/19 01:00 Problem List - Problems (1) Fracture of left hip Assessment/Plan: s/p pinning day #4 stable, able to ambulate and tolerating well exertion Bone density scan was performed last year and was WNL according to the patient Code(s): S72.002A - FRACTURE OF UNSP PART OF NECK OF LEFT FEMUR, INIT Qualifiers: Encounter type: initial encounter Fracture type: closed Qualified Code(s) : S72.002A - Fracture of unspecified part of neck of left femur, initial encounter for closed fracture (2) Hypothyroidism Assessment/Plan: repeat TSH and adjust Synthroid accordingly Code(s): E03.9 - HYPOTHYROIDISM, UNSPECIFIED (3) Breast cancer Assessment/Plan: has follow up annually with Onologist Dr. Burdick Code(s): C50.919 - MALIGNANT NEOPLASM OF UNSP SITE OF UNSPECIFIED FEMALE BREAST
--- NOTE | 2019-05-17 17:54 | DS ---
Physical Examination Vital Signs: Vital Signs Temperature 97.4 F L 05/17/19 14:26 Pulse Rate 77 05/17/19 14:26 Respiratory Rate 18 05/17/19 14:26 Blood Pressure 124/51 L 05/17/19 14:26 O2 Sat by Pulse Oximetry (%) 95 05/17/19 14:26 Constitutional: Yes: No Distress, Calm Eyes: Yes: Conjunctiva Clear, EOM Intact HENT: Yes: Atraumatic, Normocephalic Neck: Yes: Supple, Trachea Midline Cardiovascular: Yes: Regular Rate and Rhythm, S1, S2 Respiratory: Yes: Regular, CTA Bilaterally Gastrointestinal: Yes: Normal Bowel Sounds, Soft, Abdomen, Obese. No: Hepatomegaly, Splenomegaly, Tenderness ...Rectal Exam: Yes: Deferred Breast(s): Yes: WNL Extremities: No: Calf Tenderness Edema: No Peripheral Pulses WNL: Yes Integumentary: Yes: WNL Neurological: Yes: Alert, Oriented Psychiatric: Yes: Alert, Oriented Labs: CBC, BMP 05/17/19 05:55 05/17/19 05:55 Discharge Summary Reason For Visit: LEFT HIP FRACTURE Current Active Problems Breast cancer (Acute) Fracture of left hip (Acute) Hypothyroidism (Acute) Procedures: Principal: pinning of the left femoral neck Hospital Course: 63 yo female admitted after a "slip and fall" event with consequent fracture of the left femoral neck. Patient underwent pinning and tolerated well the procedure. She has h/o breast cancer treated in the past with RT and is receiving now Arimidex. A bone density scan was performed a year ago and it was normal according to the patient. Patient is ambulating with a walker and can be discharged tomorrow home with VNS services and PT. her Synthroid dosage will be adjusted in am and she will follow up with me in 4 -6 weeks or sooner if necessary. Follow up with ortho in 2 weeks Condition: Stable - Instructions - Home Medications Comprehensive Discharge Medication List: Ambulatory Orders Anastrozole [Arimidex -] 1 mg PO DAILY 03/08/16 Cholecalciferol (Vitamin D3) [Vitamin D3] 1,000 unit PO DAILY 03/08/16 Levothyroxine [Synthroid -] 25 mcg PO DAILY 03/08/16
[2019-05-18] MEDS: traMADol HCL 50 MG TABLET PO SCH ×2 (05:05→13:35)
[2019-05-18] MEDS ORDERED: LEVOTHYROXINE NA 25 MCG TABLET (FP) PO SCH (07:00)
[2019-05-18] MEDS: ENOXAPARIN NA (PORCINE) 40 MG/0.4 ML DISP.SYRIN SQ SCH (09:41)
[2019-05-18] MEDS: PANTOPRAZOLE 40 MG TABLET (FP) PO SCH (09:41)
[2019-05-18] MEDS: MULTIVITAMINS (DAILY MVI) TABLET (FP) PO SCH (09:42)
[2019-05-18] MEDS: ANASTROZOLE 1 MG TABLET PO SCH (09:42)
[2019-05-18] MEDS: SENNOSIDES/DOCUSATE COMBO (SENNA PLUS) TABLET (UD) PO SCH (09:42)
[2019-05-18 10:15] VITALS: BP 129/68; PULSE 79; TEMP 97.6
== END 2019-05-18 14:16 | disposition home or self-care (01) | DRG 481 ==
LOC: FER 20:24 → FM/S 05-14 01:02 → UNDOADMIN 05-14 01:38 → FM/S 05-14 17:58
PROVIDERS: ADMIT Internal Medicine; ATTEND Internal Medicine
PROC: 0QS704Z Reposition Left Upper Femur with Internal Fixation Device, Open Approach (ICD-10-PCS; principal; 2019-05-14 15:24)
DX: S72.092A Other fracture of head and neck of left femur, initial encounter for closed fracture (principal); Z68.41 Body mass index [BMI] 40.0-44.9, adult; E03.9 Hypothyroidism, unspecified; E66.8 Other obesity; W01.0XXA Fall on same level from slipping, tripping and stumbling without subsequent striking against object, initial encounter; Y92.090 Kitchen in other non-institutional residence as the place of occurrence of the external cause; Z85.3 Personal history of malignant neoplasm of breast
CPT/HCPCS: 36415; 71045-TC-FY; 73523-TC-FY; 73700-TC-RT; 80048; 80053; 84443; 85025; 85027; 85610; 86850; 86900; 86901; 87081; 93005; 94760; 97116-GP; 97162-GP; 99283-25; J0131; J1100

== ENCOUNTER 2022-05-14 05:36 | Observation (INO) | payer OTHER ==
[2022-05-14] MEDS ORDERED: SODIUM CHLORIDE 500 ML IV STA (05:40)
[2022-05-14 05:59] VITALS: BMI 29.1
[2022-05-14] MEDS ORDERED: dilTIAZem HCL 50 MG/10 ML - 10 ML VIAL IVPUSH ONE ×2 (06:04→08:23)
[2022-05-14] MEDS ORDERED: dilTIAZem HCL 125 MG/25 ML - 25 ML VIAL ONE (06:15)
[2022-05-14 06:31] LABS: BASO % 0.2 % (0-2.0); EOS % 1.5 % (0-4.5); HEMOGLOBIN 13.2 GM/dL (10.7-15.3); LYMPH % 30.7 % (8-40); MCH 31.2 pg (25.7-33.7); MCHC 33.8 g/dl (32.0-36.0); MEAN CELL VOLUME 92.3 fl (80-96); MEAN PLT VOLUME 8.1 fl (7.5-11.1); MONO % 9.6 % (3.8-10.2); PLATELET COUNT 334 10^3/uL (134-434); RBC 4.22 M/mm3 (3.60-5.2); RDW 14.9 % (11.6-15.6); WHITE BLOOD COUNT 9.1 K/mm3 (4.0-10.0)
[2022-05-14] MEDS ORDERED: dilTIAZem HCL 50 MG/10 ML - 10 ML VIAL ONE (08:25)
[2022-05-14] MEDS ORDERED: dilTIAZem HCL 30 MG TABLET PO ONE (08:37)
[2022-05-14] MEDS ORDERED: dilTIAZem HCL 30 MG TABLET ONE (08:46)
[2022-05-14 09:10] LABS: ALBUMIN 3.3 g/dl (3.4-5.0); BILIRUBIN,TOTAL 0.8 mg/dL (0.2-1); BLOOD UREA NITROGEN 20.8 mg/dL (7-18); CALCIUM 9.2 mg/dL (8.5-10.1); CREATININE 0.9 mg/dL (0.55-1.3)
[2022-05-14] MEDS ORDERED: ENOXAPARIN NA (PORCINE) 60 MG/0.6 ML DISP.SYRIN SQ SCH (10:00)
[2022-05-14] MEDS: ASPIRIN 81 MG CHEWABLE TABLETS PO SCH (10:44)
[2022-05-14] MEDS: PANTOPRAZOLE 40 MG TABLET PO SCH (10:45)
[2022-05-14] MEDS ORDERED: dilTIAZem HCL 30 MG TABLET PO SCH (11:00)
[2022-05-14 12:18] LABS: CHOLESTEROL 201 mg/dl (50-200); HDL CHOLESTEROL 75 mg/dl (40-60); LDL CHOLESTEROL (ONLY DFH) 109 mg/dl (5-100); TRIGLYCERIDES 85 mg/dl (0-150)
[2022-05-14] MEDS ORDERED: ATENOLOL 25 MG TABLET (FP) PO SCH (12:30)
[2022-05-14 14:49] LABS: N-TERMINAL BNP 4616.3 pg/ml (5-125)
[2022-05-14] MEDS: ATENOLOL 25 MG TABLET (FP) PO SCH (17:08)
[2022-05-14] MEDS ORDERED: ATORVASTATIN CA 20 MG TABLET (FP) PO SCH (22:00)
[2022-05-15] MEDS: ATENOLOL 25 MG TABLET (FP) PO SCH (06:37)
[2022-05-15 08:57] LABS: HEMATOCRIT 39.1 % (32.4-45.2); HEMOGLOBIN 13.5 G/dL (10.7-15.3); MCH 32.7 pg (25.7-33.7); MCHC 34.6 g/dl (32.0-36.0); MEAN CELL VOLUME 94.7 fl (80-96); MEAN PLT VOLUME 7.9 fl (7.5-11.1); PLATELET COUNT 305.2 10^3/uL (134-434); RBC 4.13 10^6/uL (3.60-5.2); RDW 14.7 % (11.6-15.6); WHITE BLOOD COUNT 9.2 10^3/uL (4.0-10.8)
[2022-05-15 09:12] LABS: MAGNESIUM 2.1 mg/dL (1.8-2.4); PHOSPHOROUS 2.7 mg/dl (2.5-4.9)
[2022-05-15] MEDS: PANTOPRAZOLE 40 MG TABLET PO SCH (09:18)
[2022-05-15] MEDS: ASPIRIN 81 MG CHEWABLE TABLETS PO SCH (09:18)
[2022-05-15 10:42] LABS: ALBUMIN 3.2 g/dl (3.4-5.0); BLOOD UREA NITROGEN 12.4 mg/dL (7-18); CALCIUM 8.8 mg/dL (8.5-10.1)
[2022-05-15 10:46] LABS: CREATININE 0.7 mg/dL (0.55-1.3)
[2022-05-15 10:48] LABS: BILIRUBIN,TOTAL 1.1 mg/dL (0.2-1); TOT PROT 5.8 g/dl (6.4-8.2)
[2022-05-15 14:46] VITALS: BP 93/52; PULSE 97; TEMP 98.4
== END 2022-05-15 16:01 | disposition home or self-care (01) ==
LOC: FER 05:36 → FM/S 06:11 → UNDOADMOB 06:11 → INTOOBSV 06:11 → FM/S 12:00
PROC: 3E033GC Introduction of Other Therapeutic Substance into Peripheral Vein, Percutaneous Approach (ICD-10-PCS; principal; 2022-05-14)
PROC: 3E0337Z Introduction of Electrolytic and Water Balance Substance into Peripheral Vein, Percutaneous Approach (ICD-10-PCS; 2022-05-14)
DX: I48.91 Unspecified atrial fibrillation (principal); Z85.3 Personal history of malignant neoplasm of breast; E03.9 Hypothyroidism, unspecified; G89.29 Other chronic pain; M54.9 Dorsalgia, unspecified; R00.0 Tachycardia, unspecified
CPT/HCPCS: 0241U-QW; 36415; 71045-TC-FY; 80053; 80061; 81003; 82550; 82962; 83036; 83735; 83880; 84100; 84439; 84443; 84484; 85025; 86850; 86900; 86901; 93005; 93010; 93306-TC; 96361; 96374; 96376; 99285-25; G0378

== ENCOUNTER 2024-02-24 05:48 | Emergency (ER) | payer OTHER ==
[2024-02-24 05:53] VITALS: TEMP 98
[2024-02-24 07:30] VITALS: BP 154/68; PULSE 65; RESP 15
== END 2024-02-24 08:25 | disposition home or self-care (01) ==
LOC: JER 05:48
DX: R00.2 Palpitations (principal); T82.897A Other specified complication of cardiac prosthetic devices, implants and grafts, initial encounter; F41.9 Anxiety disorder, unspecified
CPT/HCPCS: 93005; 93010; 99283-25